=== PATIENT | male | born 1995 | race Caucasian/White ===

== ENCOUNTER 2020-11-18 11:21 | Emergency (ER) | payer BC, SELFPAY ==
--- NOTE | 2020-11-18 12:17 | ED.GENADULT ---
HPI - General Adult General Chief complaint: Nausea/Vomiting/Diarrhea Stated complaint: black stool/tarring/nausea PMFSH Social History Social History Gender identity (if verbalized by the patient): Male Discharge Plan Discharge Patient Disposition: Left Without Being Seen Additional Instructions: Eloped prior to being triaged. Patient condition: Unknown. This was not an option therefore stable was selected to discharge/remove from board. Follow-up/Referrals: UNKNOWN,DOCTOR [Primary Care Provider] - Time of Disposition: 12:13
== END 2020-11-18 12:15 | disposition left against medical advice (07) ==
PROVIDERS: Emergency Provider Nurse Practitioner Family
DX: Z53.21 Procedure and treatment not carried out due to patient leaving prior to being seen by health care provider (principal)
CPT/HCPCS: 99199

== ENCOUNTER 2020-11-18 12:46 | Emergency (ER) | payer BC, SELFPAY ==
[2020-11-18 12:47] VITALS: BP 167/90; PULSE 93; RESP 20; TEMP 36.9; O2SAT 99
--- NOTE | 2020-11-18 15:33 | PC.NURSE ---
PT CALLED FOR VITALS. NO ANSWER
== END 2020-11-19 04:38 | disposition left against medical advice (07) ==
DX: R11.0 Nausea (principal)
CPT/HCPCS: 99199